=== PATIENT | female | born 1980 | race Caucasian/White ===

== ENCOUNTER → 2016-10-29 | Outpatient (CLI) | payer MEDICAID ==
[~2016-10-29] MED LIST: CYCL10TA9 PO; HYDR-3583 PO; LEVOTHYROXINE; LEXAPRO; NAPR-243 PO; OXYC-12 PO; TRM50T PO
== END ==
LOC: CARD 13:20
PROVIDERS: ATTEND Nurse Practitioner Family
DX: R00.0 Tachycardia, unspecified (principal); R00.2 Palpitations
CPT/HCPCS: 93005

== ENCOUNTER → 2016-11-01 | Outpatient (CLI) | payer MEDICAID ==
--- NOTE | 2016-11-01 11:48 | Diagnostic Imaging Report ---
PROCEDURE: US Thyroid. TECHNIQUE: Multiple real-time grayscale images were obtained of the thyroid in various projections. INDICATION: Followup thyroid nodules. COMPARISON: 10/31/2015. DISCUSSION: The thyroid gland is normal in echotexture and size. The right thyroid measures 5.3 x 1.3 x 1.3 cm. Left thyroid measures 5.0 x 1.0 x 1.4 cm. A 3-mm benign cyst within the right thyroid lobe is stable. A 4-mm cystic focus within the mid left thyroid lobe is also likely benign. Previous 7-mm nodule within the anterior left thyroid lobe is no longer visualized. No abnormal adjacent lymph nodes identified. IMPRESSION: Benign-appearing 3 and 4-mm hypoechoic foci within the bilateral thyroid gland as described. Recommend one-year sonographic followup. Previously demonstrated hypoechoic complex nodule within the mid left thyroid gland is no longer visualized. Dictated by: Dictated on workstation # [id number]
== END ==
LOC: RAD 11:22
PROVIDERS: ATTEND Nurse Practitioner Family
DX: E04.1 Nontoxic single thyroid nodule (principal)
CPT/HCPCS: 76536

== ENCOUNTER 2016-12-12 12:40 | Outpatient (RCR) | payer MEDICAID | END 2017-03-12 | disposition home or self-care (01) | LOC: CARD 12:40 | PROVIDERS: ATTEND Internal Medicine Interventional Cardiology | DX: R00.2 Palpitations (principal) | CPT/HCPCS: 93225; 93226 ==

== ENCOUNTER → 2016-12-12 | Outpatient (CLI) | payer MEDICAID ==
--- NOTE | 2016-12-17 20:59 | ECHOCARDIOGRAPHY REPORT ---
DATE OF SERVICE: 12/12/2016 PROCEDURE: Echocardiogram. DATE: 12/12/2016. REFERRING PHYSICIAN: Dr. Carmona. PERFORMING PHYSICIAN: Dr. Elvis Godinez. INDICATION: Palpitations. FINDINGS: 1. Sinus rhythm. 2. Left atrial dimensions are normal. 3. Aortic root dimensions are normal. 4. Left ventricular systolic function is preserved. LVEF is 55 to 60%. No LVH is present. 5. There are no wall motion abnormalities. 6. Right heart size and function is normal. 7. There is no evidence of pericardial effusion. 8. Normal diastolic function. 9. The IVC is normal with diameter of 1.8 cm. VALVULAR STRUCTURE OF THE HEART: Mild pulmonic regurgitation with trace mitral regurgitation. There is mild tricuspid regurgitation with RVSP of 16 mmHg. Aortic valve is normal. CONCLUSION: 1. LV and RV size and function is normal. 2. LVEF is 55 to 60%. 3. Normal valve function. 4. Normal PA pressure. Job ID: [id number] DocumentID: [id number] Dictated Date: 12/17/2016 14:13:24 Final Installer Inspector Date: 12/17/2016 14:40:24 Dictated By: VICENTE GODINEZ MD
== END ==
LOC: CARD 12:37
PROVIDERS: ATTEND Internal Medicine Interventional Cardiology
DX: R00.2 Palpitations (principal)
CPT/HCPCS: 93306

== ENCOUNTER → 2016-12-30 | Outpatient (CLI) | payer MEDICAID ==
--- NOTE | 2016-12-30 18:22 | Diagnostic Imaging Report ---
Bilateral diagnostic mammogram. The current study was also evaluated with a Computer Aided Detection (CAD) system. INDICATION: Breast lump in the lateral aspect of the left breast. FINDINGS: The breasts are composed of heterogeneously dense parenchyma which may decrease mammographic sensitivity. There is no mass, architectural distortion, or suspicious cluster of calcifications. Area of palpable lesion in the lateral aspect of the left breast is marked with no underlying abnormality seen. IMPRESSION: No mammographic evidence of malignancy. Ultrasound evaluation pending. ACR BI-RADS Category 0: Incomplete. (Needs additional imaging evaluation). Result letter will be mailed to the patient. Note: At least 10% of breast cancer is not imaged by mammography. Dictated by: Dictated on workstation # [id number]
--- NOTE | 2016-12-30 19:21 | Diagnostic Imaging Report ---
Left breast ultrasound. INDICATION: Left breast lump. FINDINGS: Area of palpable lump is at the 2 o'clock zone about 9 cm from the nipple with the area of lump and surrounding region scanned with no underlying abnormality seen. IMPRESSION: Negative study. Clinical follow-up of the palpable area is recommended. If this persists or is associated with high index of suspicion, then MRI evaluation could be considered. ACR BI-RADS Category 1: Negative. Dictated by: Dictated on workstation # [id number]
== END ==
LOC: RAD 09:28
PROVIDERS: ATTEND Obstetrics & Gynecology
DX: N60.02 Solitary cyst of left breast (principal); N92.0 Excessive and frequent menstruation with regular cycle; E28.2 Polycystic ovarian syndrome; N94.6 Dysmenorrhea, unspecified
CPT/HCPCS: 76642; 77066

== ENCOUNTER 2017-01-09 08:30 | Outpatient (RCR) | payer MEDICAID | END 2017-03-16 | disposition home or self-care (01) | LOC: CARD 08:30 | PROVIDERS: ATTEND Internal Medicine Interventional Cardiology | DX: R00.2 Palpitations (principal) | CPT/HCPCS: 93270 ==

== ENCOUNTER → 2017-01-15 | Outpatient (CLI) | payer MEDICAID ==
--- NOTE | 2017-01-15 15:45 | Diagnostic Imaging Report ---
EXAMINATION: Transabdominal and transvaginal pelvic ultrasound. INDICATION: Pelvic pain. FINDINGS: The uterus is 9.9 x 5.4 x 4.7 cm. There is a hypoechoic lesion in the upper aspect of the uterus along the fundus measuring 2.1 x 1.4 x 1.5 cm. Slight heterogeneity of the rest of the myometrium is seen. The endometrial stripe is 6 mm in thickness with nonspecific tiny amount of fluid in the endometrial cavity. The right ovary is 4.1 x 2.1 x 2 cm. The left ovary is 2.5 x 3.1 x 2.9 cm. Arterial waveforms over both ovaries seen. IMPRESSION: 2.1 cm fundal fibroid. Dictated by: Dictated on workstation # [id number]
== END ==
LOC: RAD 09:45
PROVIDERS: ATTEND Obstetrics & Gynecology
DX: N92.0 Excessive and frequent menstruation with regular cycle (principal); N94.6 Dysmenorrhea, unspecified; E28.2 Polycystic ovarian syndrome; D25.9 Leiomyoma of uterus, unspecified
CPT/HCPCS: 76830; 76856

== ENCOUNTER → 2017-05-15 | Outpatient (CLI) | payer MEDICAID | LOC: RAD 13:57 | PROVIDERS: ATTEND Internal Medicine Interventional Cardiology | DX: R07.9 Chest pain, unspecified (principal); I49.3 Ventricular premature depolarization; R00.0 Tachycardia, unspecified | CPT/HCPCS: 93017 ==

== ENCOUNTER → 2019-03-23 | Outpatient (CLI) | payer BC, MEDICAID ==
--- NOTE | 2019-03-23 09:13 | Diagnostic Imaging Report ---
INDICATION: Hypothyroidism TECHNIQUE: Grayscale sonographic images of the thyroid gland. CORRELATION STUDY: 11/01/2016 FINDINGS: RIGHT LOBE: 4.3 x 1.4 x 1.2 cm. There is normal echotexture within the right lobe. The previously demonstrated small hypoechoic nodule on prior study not visualized on this followup assessment. LEFT LOBE: 4.6 x 1.5 x 1.2 cm. A small hypoechoic cystic nodule in the central echogenic foci compatible with a colloid cyst measures 4 mm, stable. Isthmus appears unremarkable. 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 (Normal gland size: 4-5 x 2 x 2 cm) Dictated by: Dictated on workstation # [id number]
--- NOTE | 2019-03-23 14:22 | Diagnostic Imaging Report ---
Indication: Routine screening. Comparison is made with prior mammogram 12/30/2016. 2-D and 3-D bilateral screening mammography was performed with CAD. Scattered fibroglandular densities are identified bilaterally. The parenchymal pattern is stable. No dominant mass or malignant appearing microcalcifications are seen. The axillae are unremarkable. Impression: BI-RADS category one No mammographic features suspicious for malignancy are identified. ACR BI-RADS Category 1: Negative. Result letter will be mailed to the patient. Note: At least 10% of breast cancer is not imaged by mammography. Dictated by: Dictated on workstation # [id number]
== END ==
LOC: RAD 07:49
PROVIDERS: ATTEND Nurse Practitioner Family
DX: Z12.31 Encounter for screening mammogram for malignant neoplasm of breast (principal); E03.9 Hypothyroidism, unspecified
CPT/HCPCS: 76536; 77067

== ENCOUNTER → 2019-09-28 | Outpatient (CLI) | payer BC ==
--- NOTE | 2019-09-28 15:27 | Diagnostic Imaging Report ---
INDICATION: Cough. PA and lateral views were obtained. FINDINGS: The heart size, mediastinal configuration, and pulmonary vascularity are within normal limits. There is no pleural effusion, pneumothorax, or pneumonia. The osseous structures are unremarkable. IMPRESSION: No acute cardiopulmonary abnormality. Dictated by: Dictated on workstation # [id number]
== END ==
LOC: RAD 14:38
PROVIDERS: ATTEND Nurse Practitioner Family
DX: J18.9 Pneumonia, unspecified organism (principal)
CPT/HCPCS: 71046

== ENCOUNTER → 2019-10-20 | Outpatient (CLI) | payer BC ==
[~2019-10-20] MED LIST changes: +RT-ALBUTEROL SULF 2.5 MG/3 ML PRE-MIX VIAL INH ONE
== END ==
LOC: RT 08:00
PROVIDERS: ATTEND Nurse Practitioner Family
DX: J45.998 Other asthma (principal); J30.9 Allergic rhinitis, unspecified; G47.10 Hypersomnia, unspecified; Z87.891 Personal history of nicotine dependence
CPT/HCPCS: 94060; 94726; 94729

== ENCOUNTER 2019-10-21 15:57 | Outpatient (CLI) | payer BC ==
[~2019-10-21 15:57] MED LIST changes: -RT-ALBUTEROL SULF 2.5 MG/3 ML PRE-MIX VIAL INH ONE
== END 2019-10-21 16:41 | disposition home or self-care (01) ==
LOC: SLEEP 15:57
PROVIDERS: ATTEND Nurse Practitioner Family
DX: G47.10 Hypersomnia, unspecified (principal); G47.8 Other sleep disorders; J30.9 Allergic rhinitis, unspecified; J45.998 Other asthma; Z87.891 Personal history of nicotine dependence

== ENCOUNTER 2021-06-07 13:14 | Emergency (ER) | payer SELFPAY ==
[~2021-06-07] VITALS: Ht 167.7 cm; Wt 108.8 kg
[2021-06-07] MEDS ORDERED: METH-732 PO (13:44)
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
[2021-06-07] MEDS ORDERED: ORPHENADRINE 60 MG/2 ML (NORFLEX) AMP (ED ONLY) IM ONE (13:45)
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
[2021-06-07 14:38] VITALS: BP 135/82
== END 2021-06-07 14:38 | disposition home or self-care (01) ==
LOC: EDUNIT# 13:14 → ER 13:15
DX: S16.1XXA Strain of muscle, fascia and tendon at neck level, initial encounter (principal); V89.2XXA Person injured in unspecified motor-vehicle accident, traffic, initial encounter
CPT/HCPCS: 70450; 72125; 99284

== ENCOUNTER 2022-01-19 21:35 | Emergency (ER) | payer BC ==
[~2022-01-19 21:35] MED LIST changes: +METH-732 PO
[2022-01-19 21:45] VITALS: BP 133/80
[2022-01-19] MEDS ORDERED: CLINDAMYCIN 150 MG (CLEOCIN) CAP PO STA (21:53)
[2022-01-19] MEDS ORDERED: CLIN-144 PO (21:57)
--- NOTE | 2022-01-19 21:57 | ED EENT ---
History of Present Illness General Stated Complaint: DENTAL INFECTION Source: patient Exam Limitations: no limitations (JIM OLIVAS) History of Present Illness Date Seen by Provider: Jan 19, 2022 Time Seen by Provider: 21:53 Initial Comments Patient is a 42-year-old female who presents ED with right upper dental pain. She states she fractured her right upper molar around . She started having severe pain on Friday started having some facial swelling on the right side. She has been taken Tylenol and ibuprofen with some pain improvement. Rates pain 7 out of 10. She is concerned for the right-sided facial swelling and concern for infection. She denies of any drainage, fever, chills, headache, dizziness. Has not been able to schedule appointment with a dentist. Patient is requesting antibiotics at this time (JIM OLIVAS) Allergies and Home Medications Allergies Coded Allergies: latex (Verified Allergy, Mild, 03/21/09) Penicillins (Verified Allergy, Unknown, Rash, 01/19/22) Patient Home Medication List Home Medication List Reviewed: Yes (JIM OLIVAS) Clindamycin HCl (Clindamycin HCl) 300 Mg Capsule, 300 MG PO QID Prescribed by: MATILDE GARCIA on 01/19/22 2157 Cyclobenzaprine Hcl (Cyclobenzaprine Hcl) 10 Mg Tablet, 1 EACH PO Q8HR PRN Prescribed by: SARAHY SOTO on 04/15/12 1217 Hydrocodone Bit/Acetaminophen (Lortab 5 Mg) 1 Tab Tab, 1 EA PO Q6HR PRN Prescribed by: KAREN CARABALLO MD on 12/29/09 2237 Methocarbamol (Methocarbamol) 750 Mg Tablet, 750 MG PO Q6-8HR Prescribed by: DAVIN GONZALEZ on 06/07/21 1344 Naproxen (Naprosyn) 500 Mg Tablet, 1 EACH PO BID PRN Prescribed by: SARAHY SOTO on 04/15/12 1217 Oxycodone Hcl/Acetaminophen (Percocet 5-325 Mg Tablet) 1 Each Tablet, 1 EACH PO PRN, (Reported) Entered as Reported by: RAYSHAWN MURRELL on 04/15/12 1136 Oxycodone Hcl/Acetaminophen (Percocet 5-325 Mg Tablet) 1 Each Tablet, 1-2 EACH PO Q6H PRN Prescribed by: SARAHY SOTO on 04/15/12 1217 Review of Systems Review of Systems Constitutional: No chills, No diaphoresis, No malaise, No weakness Eyes: Denies Blurred Vision, Denies Drainage, Denies Decreased Acuity Ears: Denies Dizziness, Denies Pain Nose: denies clots, denies congestion, denies bloody discharge, denies clear discharge Mouth: pain, swelling Throat: denies pain, denies swelling, denies painful swallowing, denies difficulty with fluids Respiratory: No cough, No dyspnea on exertion Cardiovascular: No chest pain Musculoskeletal: No back pain, No joint pain Skin: No change in color, No change in hair/nails Neurological: Denies Anxiety, Denies Depressed (JIM OLIVAS) Past Gytnhjp-Fkibax-Huteub Hx Past Medical History Reproductive Disorders: No (JIM OLIVAS) Physical Exam Vital Signs Vital Signs - First Documented 01/19/22 21:45 Temp 36.8 Pulse 107 Resp 16 B/P (MAP) 133/80 (97) (CAREY ARAUJO MD) Height, Weight, BMI Height: '" Weight: lbs. oz. kg; 38.00 BMI Method:Stated General Appearance: No WD/WN, No no apparent distress Eyes: bilateral eye normal inspection, bilateral eye PERRL, bilateral eye EOMI Ears: bilateral ear auricle normal, bilateral ear canal normal, bilateral ear TM normal Nose: normal inspection Mouth/Throat: other (Right-sided facial swelling without redness. Right upper third molar decay with exposed socket. Mild swelling without fluctuant mass. Mild gum redness) Neck: non-tender, full range of motion, supple Cardiovascular: regular rate, rhythm, no edema, no gallop, no JVD Respiratory: chest non-tender, lungs clear, normal breath sounds, no respiratory distress, no accessory muscle use Gastrointestinal: normal bowel sounds, non tender, soft, no organomegaly Neurologic/Psychiatric: resolute professional II-XII nml as tested, no motor/sensory deficits, alert Skin: normal color (JIM OLIVAS) Progress/Results/Core Measures Results/Orders Vital Signs/I&O 01/19/22 21:45 Temp 36.8 Pulse 107 Resp 16 B/P (MAP) 133/80 (97) (CAREY ARAUJO MD) Departure Communication (PCP) Patient is a 42-year-old female presents ED for right upper dental pain. She states she may have fractured her right upper third molar. She denies having her wisdom teeth removed. She states her tooth fractured and fell out. Socket is exposed. She does have some gum redness. No obvious puncture mouth. Mild swelling to the right side concerning for periapical abscess. No obvious abscess to drain at this time. She does not appear toxic or septic. She does have Tylenol ibuprofen at home as well as other pain medication as needed. She is requesting antibiotic. She was given a dose of clindamycin here. Discussed with patient if symptoms worsen such as increased swelling, not able to eat or open her mouth to return back to ED for IV antibiotics. She has no parotid or mastoid tenderness. Bilateral TMs clear. No TMJ tenderness. No evidence of Lenin angina (JIM OLIVAS) Impression Primary Impression: Dental infection Disposition: HOME, SELF-CARE Condition: Stable Departure-Patient Inst. Decision time for Depature: 21:56 (JIM OLIVAS) Referrals: CYRIL BATISTA MD (PCP/Family) Primary Care Physician YOLANDA BUSTOS DDS Patient Instructions: Dental Pain ED Scripts Clindamycin HCl (Clindamycin HCl) 300 Mg Capsule 300 MG PO QID for 7 Days, #28 CAP Prov: JIM OLIVAS 01/19/22 ATTENDING PHYSICIAN NOTE: I was physically present as attending physician in the emergency department during the care of this patient, but I was not directly involved in the decision making or delivery of care for this patient. (CAREY ARAUJO MD) JIM OLIVAS Jan 19, 2022 21:57 CAREY ARAUJO MD Jan 20, 2022 01:59
== END 2022-01-19 22:09 | disposition home or self-care (01) ==
LOC: EDUNIT# 21:35 → ER 21:37
DX: K04.7 Periapical abscess without sinus (principal); K02.9 Dental caries, unspecified
CPT/HCPCS: 99283